=== PATIENT | male | born 1950 | race Caucasian/White ===

== ENCOUNTER 2018-08-19 13:18 | Emergency (ER) | payer BC ==
[2018-08-19] MEDS ORDERED: APRESOLINE 20 MG/ML INJ IV ONE (13:44)
[2018-08-19] MEDS ORDERED: APRESOLINE 20 MG/ML INJ ONE (13:55)
[2018-08-19 14:00] LABS: BASOPHIL % 0.4 % (0.0-0.4); Basophil (Absolute #) 0.03 (0-0.4); Eosinophil % 1.8 % (0.00-5.0); Eosinophil (Absolute #) 0.14 (0-0.5); Granulocyte Absolute (ANC) 5.95 (1.4-6.9); Granulocytes % 74.7 % (36.0-66.0); Hematocrit 43.9 % (42-50); Hemoglobin 14.4 gm/dl (12.5-18.0); Lymphocyte (Absolute #) 1.22 (1.0-4.6); Lymphocytes % 15.3 % (24.0-44.0); Mean Cell Volume 85.7 fl (78-100); Mean Corpuscular Hemoglobin 28.1 pg (26-32); Mean Corpuscular Hgb Concent. 32.8 g/dl (32-36); Mean Platelet Volume 9.9 fl (6-9.5); Monocyte (Absolute #) 0.62 (0.0-1.3); Monocytes % 7.8 % (0.0-12.0); Platelet Count 163 K/mm3 (150-450); Red Blood Count 5.12 M/mm3 (4.1-5.6); Red Cell Distribution Width 14.8 % (11.5-14.0)
[2018-08-19 14:13] LABS: Appearance CLEAR (CLEAR); Bacteria RARE /HPF (NEGATIVE); Bilirubin NEGATIVE (NEGATIVE); Blood SMALL Ery/ul (0-5); Glucose 150 mg/dL (NEGATIVE); Ketones NEGATIVE (NEGATIVE); Leukocyte Esterase NEGATIVE (NEGATIVE); Nitrite NEGATIVE (NEGATIVE); Protein,Urine Dip 30 (Negative); Specific Gravity 1.012 (1.005-1.025); Urobilinogen NEGATIVE mg/dL (0-1)
[2018-08-19 14:19] LABS: ALBUMIN 4.1 g/dL (3.5-5.0); ALKALINE PHOSPHATASE 49 U/L (38-126); ANION GAP 14.9 MEQ/L (5-15); BLOOD UREA NITROGEN 17 mg/dL (9-20); CHLORIDE 101 mmol/L (98-107); Calcium 9.9 mg/dL (8.4-10.2); Carbon Dioxide 27 mmol/L (22-30); Creatinine 1 0.95 mg/dL (0.66-1.25); Glucose 195 mg/dL (74-106); NT PRO BNP 392 pg/mL (0-900); Potassium 4.3 mmol/L (3.5-5.1); SGOT/AST 33 U/L (17-59); SGPT/ALT 47 U/L (0-50); SODIUM 139 mmol/L (137-145); Total Protein 7.2 g/dL (6.3-8.2)
--- NOTE | 2018-08-19 15:12 | XRAY ---
Indication: Right upper quadrant pain. Multiple contiguous axial images obtained through the abdomen and pelvis without contrast as ordered. Comparison: None CT chest reported separately. Noncontrasted stomach and bowel loops appear nonobstructed. Normal appendix. Minimal scattered descending and sigmoid diverticulosis. Previous cholecystectomy. No free fluid/air. Hepatic/splenic calcified granulomas. Bilateral renal cysts, largest right upper pole measuring 3.4 cm. Also nonobstructing punctate right renal stone. Remaining liver, pancreas, spleen, adrenal glands, kidneys, ureters, and bladder appear unremarkable for noncontrast exam. Mild scattered vascular calcifications. No AAA. Osseous structures demonstrates normal degenerative changes throughout the spine. Moderate/advanced degenerative changes of the left hip. No ventral or inguinal hernias. Impression: 1. Minimal colonic diverticulosis, bilateral renal cysts, nonobstructing right renal microcalculus, and evidence for old granulomatous disease. 2. Moderate/advanced left hip degenerative arthropathy. 3. Remaining CT abdomen/pelvis without contrast exam is negative. CT DI 27.56
--- NOTE | 2018-08-19 15:13 | XRAY ---
Indication: Left chest pain. Hypertension. Multiple contiguous axial images obtained through the chest without contrast as ordered. Comparison: None Lungs inflated with minimal bibasilar dependent atelectasis and minimal left base scarring. No suspicious pulmonary mass, infiltrate, or effusion. Heart is not enlarged. Aorta mildly arteriosclerotic without aneurysmal dilatation. Tiny left hilar calcified nodes. No pathologic mediastinal lymphadenopathy. Bony thorax intact with flowing osteophytes throughout the spine. CT abdomen reported separately. Impression: Minimal atelectasis/scarring. Remaining CT chest without contrast exam is negative. CT DI 19.30
--- NOTE | 2018-08-19 15:51 | ERPHSYRPT ---
- History of Present Illness Source: patient Exam Limitations: no limitations Patient Subjective Stated Complaint: pt reports he was at a routine neurology appt this morning when his blood pressure reading was high at 186/92. his neurologist advised him to see his PCP today. pt called his PCP who was sick and referred to another provider who advised him to come to the ED. pt complains of right upper back pain for one week. pt advised he has not taken his daily water pills today due to his travel to [place] this morning. Triage Nursing Assessment: pt is aox3, pt appears in no distress, pupils perrl, afebrile, radial pulses strong and equal, cap refill < 3 seconds, pt abd non tender, bowel sounds present and normoactive x 4, pt has 1 + pitting edema to bilat lower extremities. pt skin pink warm dry. Physician History: Pt was at his neurologist appoint, and when they took his vitals, he was extremly hypertensive, with SBP in the 220s. The pt was refered to the ER. Pt denies F/C/S. No problem with urination. No chest pain or palpitations. No headache. Pt is complaining of pain in his R mid back. that is worse with pressure or palpations. Timing/Duration: today Activities at Onset: none Severity of Pain-Max: none Severity of Pain-Current: none Aspirin Treatment Today: unknown Allergies/Adverse Reactions: No Known Drug Allergies Allergy (Verified 05/16/15 06:30) Home Medications: Benazepril HCl [Lotensin] 40 mg PO DAILY 02/15/14 [History] Glyburide Micronized 3 mg [Glynase 3 MG] 3 mg PO BID 02/15/14 [History] HydrALAzine HCL 25 MG TAB [Apresoline 25 MG TABLET] 100 mg PO TID [History] Metolazone 2.5 mg [Zaroxolyn 2.5 MG] 2.5 mg PO UD 02/15/14 [History] Montelukast Sodium [Singulair] 10 mg PO HS 02/15/14 [History] Nifedipine [Procardia Xl] 30 mg PO DAILY 02/15/14 [History] Potassium Chloride 20 Meq [Klor-Con 20 MEQ] 100 meq PO DAILY 02/15/14 [History] Spironolactone [Aldactone] 50 mg PO DAILY 02/15/14 [History] Aspirin [Aspirin EC] 81 mg PO DAILY 03/14/14 [History] Nitroglycerin 0.4 mg (Ed) [Nitrostat 0.4 MG (ED)] 1 tab SL UD PRN [History] Furosemide [Lasix] 80 mg PO QPM 03/15/14 [History] Subcutaneous Insulin Pump [Insulin Pump] 1 each MC DAILY 03/15/14 [History] Clopidogrel Bisulfate 75 mg [PLAVIX 75 MG Tablet] 75 mg PO DAILY 08/19/18 [History] Dulaglutide [Trulicity] 1 each SQ WEEKLY 08/19/18 [History] Ergocalciferol (Vitamin D2) [Vitamin D2] 50,000 units PO UD 08/19/18 [History] Ezetimibe 10 mg [Zetia 10 MG] 10 mg PO DAILY 08/19/18 [History] Labetalol HCl 100 mg [Trandate 100 MG] 300 mg PO BID 08/19/18 [History] Liraglutide [Victoza 2-Fabrice] 1 each SQ DAILY 08/19/18 [History] Primidone 50 mg PO TID 08/19/18 [History] Rosuvastatin Calcium [Crestor] 40 mg PO DAILY 08/19/18 [History] Testosterone 30 mg TD UD 08/19/18 [History] Hx Tetanus, Diphtheria Vaccination/Date Given: Yes Hx Influenza Vaccination/Date Given: Yes Hx Pneumococcal Vaccination/Date Given: Yes Immunizations Up to Date: Yes - Review of Systems Constitutional: No Fever, No Chills Eyes: No Symptoms Ears, Nose, & Throat: No Symptoms Respiratory: No Cough, No Dyspnea Cardiac: No Chest Pain, No Edema, No Syncope Abdominal/Gastrointestinal: No Abdominal Pain, No Nausea, No Vomiting, No Diarrhea Genitourinary Symptoms: No Dysuria Musculoskeletal: Back Pain (mid basck on the right), No Neck Pain Neurological: No Dizziness, No Focal Weakness, No Sensory Changes - Past Medical History Pertinent Past Medical History: Yes Neurological History: Seizures ENT History: No Pertinent History Cardiac History: Coronary Artery Disease, High Cholesterol, Hypertension Respiratory History: Asthma Endocrine Medical History: Diabetes Type II Musculoskeletal History: No Pertinent History GI Medical History: Colorectal Cancer, Esophageal Disorder, Other History: No Pertinent History Psycho-Social History: No Pertinent History Male Reproductive Disorders: No Pertinent History Other Medical History: SZ-8yrs ago,esoph spasm. anemia - Past Surgical History Past Surgical History: Yes Neuro Surgical History: No Pertinent History Cardiac: Cardiac Catheterization, Cardiac Stent Respiratory: No Pertinent History Gastrointestinal: Cholecystectomy Genitourinary: No Pertinent History Musculoskeletal: Orthopedic Surgery Male Surgical History: No Pertinent History Other Surgical History: at age [age] left upper leg crushed, colonoscopy, EGD. october 2017 cardiac stent - Social History Smoking Status: Never smoker Exposure to second hand smoke: Yes Drug Use: none Patient Lives Alone: No - Nursing Vital Signs Nursing Vital Signs: Initial Vital Signs Temperature 98.4 F 08/19/18 13:24 Pulse Rate 104 H 08/19/18 13:24 Respiratory Rate 20 08/19/18 13:24 Blood Pressure 220/121 08/19/18 13:24 O2 Sat by Pulse Oximetry 97 08/19/18 13:24 Pain Scale Pain Intensity 8 - Physical Exam General Appearance: no apparent distress, alert Eye Exam: PERRL/EOMI, eyes nml inspection Ears, Nose, Throat Exam: normal ENT inspection, moist mucous membranes Neck Exam: normal inspection, non-tender, supple Respiratory Exam: normal breath sounds, lungs clear, No respiratory distress Cardiovascular Exam: regular rate/rhythm, normal heart sounds, No edema Gastrointestinal/Abdomen Exam: soft, No tenderness, No mass Back Exam: normal inspection, muscle spasm, other (midthoracic back on the R), No CVA tenderness, No vertebral tenderness Extremity Exam: normal inspection, normal range of motion Neurologic Exam: alert, oriented x 3, cooperative, normal mood/affect, nml cerebellar function, sensation nml, No motor deficits Skin Exam: normal color, warm, dry Lymphatic Exam: No adenopathy SpO2: 95 - Course Nursing assessment & vital signs reviewed: Yes EKG Interpreted by Me: RATE (78bpm, ), NORMAL AXIS, NORMAL QRS, NORMAL ST-T - CT Exams Abdomen/Pelvis CT Interpretation: Negative (minimal diverticulosis, b/l renal cysts, moderate advanced left hip degenerative arthropathy.) Chest CT Interpretation: Negative (minimal atelectasis/scarring) Ordered Tests: Active Orders 24 hr Category Date Time Status EKG-ER Only STAT Care 08/19/18 13:00 Active IV Insertion STAT Care 08/19/18 13:54 Active ABDOMEN AND PELVIS W/0 CONTRAS [CT] Stat Exams 08/19/18 14:38 Completed CHEST WITHOUT CONTRAST [CT] Stat Exams 08/19/18 14:37 Completed CBC W DIFF Stat Lab 08/19/18 13:45 Completed CMP Stat Lab 08/19/18 13:45 Completed CULTURE,URINE Stat Lab 08/19/18 14:01 Received NT PRO BNP Stat Lab 08/19/18 13:45 Completed TROPONIN Q3H Lab 08/19/18 13:45 Completed TROPONIN Q3H Lab 08/19/18 17:00 Ordered TROPONIN Q3H Lab 08/19/18 20:00 Ordered TROPONIN Q3H Lab 08/19/18 23:00 Ordered TROPONIN Q3H Lab 08/20/18 02:00 Ordered UA W/RFX UR CULTURE Stat Lab 08/19/18 14:01 Completed Medication Summary Generic Name Dose Route Start Last Admin Trade Name Freq PRN Reason Stop Dose Admin Hydralazine HCl 25 mg 08/19/18 17:00 08/19/18 15:07 Apresoline 25 Mg Tablet PO 09/18/18 16:59 25 mg QID ANDRY Administration Discontinued Medications Generic Name Dose Route Start Last Admin Trade Name Freq PRN Reason Stop Dose Admin Hydralazine HCl 20 mg 08/19/18 13:44 08/19/18 14:00 Apresoline 20 Mg/Ml Inj IV 08/19/18 13:45 20 mg STAT ONE Administration Hydralazine HCl Confirm 08/19/18 13:55 Apresoline 20 Mg/Ml Inj Administered 08/19/18 13:56 Dose 20 mg .ROUTE .xAd-[facility] ONE Lab/Rad Data: Laboratory Result Diagrams 08/19/18 13:45 08/19/18 13:45 Laboratory Results 08/19/18 08/19/18 08/19/18 Range/Units 14:01 13:45 13:45 WBC (4.0-10.5) K/mm3 RBC (4.1-5.6) M/mm3 Hgb (12.5-18.0) gm/dl Hct (42-50) % MCV (78-100) fl MCH (26-32) pg MCHC (32-36) g/dl RDW (11.5-14.0) % Plt Count (150-450) K/mm3 MPV (6-9.5) fl Gran % (36.0-66.0) % Eos # (Auto) (0-0.5) Absolute Lymphs (auto) (1.0-4.6) Absolute Monos (auto) (0.0-1.3) Lymphocytes % (24.0-44.0) % Monocytes % (0.0-12.0) % Eosinophils % (0.00-5.0) % Basophils % (0.0-0.4) % Absolute Granulocytes (1.4-6.9) Basophils # (0-0.4) Sodium 139 (137-145) mmol/L Potassium 4.3 (3.5-5.1) mmol/L Chloride 101 (98-107) mmol/L Carbon Dioxide 27 (22-30) mmol/L Anion Gap 14.9 (5-15) MEQ/L BUN 17 (9-20) mg/dL Creatinine 0.95 (0.66-1.25) mg/dL Estimated GFR > 60.0 ML/MIN Glucose 195 H (74-106) mg/dL Calcium 9.9 (8.4-10.2) mg/dL Total Bilirubin 1.00 (0.2-1.3) mg/dL AST 33 (17-59) U/L ALT 47 (0-50) U/L Alkaline Phosphatase 49 (38-126) U/L Troponin I < 0.012 (0.000-0.034) ng/mL NT-Pro-B Natriuret Pep 392 (0-900) pg/mL Serum Total Protein 7.2 (6.3-8.2) g/dL Albumin 4.1 (3.5-5.0) g/dL Urine Color YELLOW (YELLOW) Urine Appearance CLEAR (CLEAR) Urine pH 7.0 (5-6) Ur Specific Morrow 1.012 (1.005-1.025) Urine Protein 30 (Negative) Urine Ketones NEGATIVE (NEGATIVE) Urine Blood SMALL (0-5) Abiel/ul Urine Nitrite NEGATIVE (NEGATIVE) Urine Bilirubin NEGATIVE (NEGATIVE) Urine Urobilinogen NEGATIVE (0-1) mg/dL Ur Leukocyte Esterase NEGATIVE (NEGATIVE) Urine WBC (Auto) NONE (0-5) /HPF Urine RBC (Auto) 3-5 (0-2) /HPF U Epithel Cells (Auto) NONE (FEW) /HPF Urine Bacteria (Auto) RARE (NEGATIVE) /HPF Urine Culture Reflexed YES (NO) Urine Glucose 150 (NEGATIVE) mg/dL 08/19/18 Range/Units 13:45 WBC 8.0 (4.0-10.5) K/mm3 RBC 5.12 (4.1-5.6) M/mm3 Hgb 14.4 (12.5-18.0) gm/dl Hct 43.9 (42-50) % MCV 85.7 (78-100) fl MCH 28.1 (26-32) pg MCHC 32.8 (32-36) g/dl RDW 14.8 H (11.5-14.0) % Plt Count 163 (150-450) K/mm3 MPV 9.9 H (6-9.5) fl Gran % 74.7 H (36.0-66.0) % Eos # (Auto) 0.14 (0-0.5) Absolute Lymphs (auto) 1.22 (1.0-4.6) Absolute Monos (auto) 0.62 (0.0-1.3) Lymphocytes % 15.3 L (24.0-44.0) % Monocytes % 7.8 (0.0-12.0) % Eosinophils % 1.8 (0.00-5.0) % Basophils % 0.4 (0.0-0.4) % Absolute Granulocytes 5.95 (1.4-6.9) Basophils # 0.03 (0-0.4) Sodium (137-145) mmol/L Potassium (3.5-5.1) mmol/L Chloride (98-107) mmol/L Carbon Dioxide (22-30) mmol/L Anion Gap (5-15) MEQ/L BUN (9-20) mg/dL Creatinine (0.66-1.25) mg/dL Estimated GFR ML/MIN Glucose (74-106) mg/dL Calcium (8.4-10.2) mg/dL Total Bilirubin (0.2-1.3) mg/dL AST (17-59) U/L ALT (0-50) U/L Alkaline Phosphatase (38-126) U/L Troponin I (0.000-0.034) ng/mL NT-Pro-B Natriuret Pep (0-900) pg/mL Serum Total Protein (6.3-8.2) g/dL Albumin (3.5-5.0) g/dL Urine Color (YELLOW) Urine Appearance (CLEAR) Urine pH (5-6) Ur Specific Morrow (1.005-1.025) Urine Protein (Negative) Urine Ketones (NEGATIVE) Urine Blood (0-5) Abiel/ul Urine Nitrite (NEGATIVE) Urine Bilirubin (NEGATIVE) Urine Urobilinogen (0-1) mg/dL Ur Leukocyte Esterase (NEGATIVE) Urine WBC (Auto) (0-5) /HPF Urine RBC (Auto) (0-2) /HPF U Epithel Cells (Auto) (FEW) /HPF Urine Bacteria (Auto) (NEGATIVE) /HPF Urine Culture Reflexed (NO) Urine Glucose (NEGATIVE) mg/dL - Progress Progress: improved Air Movement: good Progress Note: 08/19/18 15:54 Pt had lab work that were normal, including troponins. He got Hydralazine 20mg IV and 25mg PO. CTs of chest, abdomen and pelvis, did not show any pathology that will explain the pain. Pt has probably muscular pain. Pt is safe for d/ c. He should take his meds as ordered, especially the Hydralazine 100mg TID. Pt should f/u with his claim manager for BP f/u. Blood Culture(s) Obtained: No Antibiotics given: No Discussed with Dr.: Sharon Will see patient in: office Counseled pt/family regarding: need for follow-up - Departure Departure Disposition: Home Clinical Impression: Hypertensive urgency Condition: Stable Critical Care Time: No Referrals: MIGUEL ANGEL TAPIA [Primary Care Provider] - Additional Instructions: Take meds as ordered. F/U with PCP this week, and with cardiology for meds adjustments.
[2018-08-19 16:04] VITALS: BP 159/85; PULSE 96; O2SAT 96
[2018-08-19] MEDS ORDERED: Apresoline 25 MG TABLET PO SCH (17:00)
== END 2018-08-19 16:04 | disposition home or self-care (01) ==
LOC: ED 13:18
DX: I16.0 Hypertensive urgency (principal); I25.10 Atherosclerotic heart disease of native coronary artery without angina pectoris; E78.00 Pure hypercholesterolemia, unspecified; J45.909 Unspecified asthma, uncomplicated
CPT/HCPCS: 36000; 36415; 71250; 74176; 80053; 81001; 83880; 84484; 85025; 87086; 93005; 96374; 99284; J0360; A9270-GY

== ENCOUNTER 2019-10-19 05:53 | Day surgery (SDC) | payer BC, MEDICARE ==
[2019-10-19] MEDS ORDERED: Lactated Ringers 1,000 ML IV SCH (06:30)
[2019-10-19] MEDS ORDERED: DIPRIVAN 200 MG/20 ML IV ONE (08:22)
[2019-10-19 09:54] VITALS: O2SAT 95
--- NOTE | 2019-10-19 10:22 | OP ---
SURGERY DATE/TIME: 10/19/2019 0826 PREOPERATIVE DIAGNOSIS: Rectal bleeding. POSTOPERATIVE DIAGNOSIS: Ulcerative colitis and pseudopolyps. PROCEDURE: Colonoscopy with cold forceps biopsy. SURGEON: Dr. Herrera. ANESTHESIA: Medications were given by the anesthesia department. HISTORY: The patient is a 69 year old white male patient with history of colitis. The patient reports he recently had rectal bleeding. He also reports a few days back he had partial colon resection. The patient is felt the need to have endoscopic evaluation. He was appraised of the risks of the procedure including the risk of perforation, phlebitis, untoward reaction to medication, bleeding and missed lesions. The patient verbalized his understanding and desired to have the procedure performed. DESCRIPTION OF PROCEDURE: The patient was given the medications by the anesthesia department. He had continuous pulse oximetry, ECG monitoring, intermittent blood pressure monitoring and tidal CO2 monitoring during the examination. He was placed in the left lateral decubitus position. A digital rectal examination was performed and revealed normal anal sphincter tone, no masses and normal prostate. The flexible Olympus pediatric colonoscope was used to intubate the rectum. A view of the colon was developed sequentially to the cecum. Upon insertion and withdrawal was noted what appeared to be ulcerative colitis upwards approximately 15 to 20 cm from direct insertion from the anus. There was also noted to be multiple what appeared to be pseudopolyps these were biopsied to rule out any adenomatous change or dysplasia. The scope was removed from the patient who tolerated the procedure well and was sent back to OP recovery in good condition. The prep was noted to be fair.
[2019-10-19 10:23] VITALS: BP 128/72; PULSE 72
== END 2019-10-19 10:00 | disposition home or self-care (01) ==
LOC: SDC 05:53
PROVIDERS: ATTEND Family Medicine
DX: K51.90 Ulcerative colitis, unspecified, without complications (principal); K63.5 Polyp of colon; K52.9 Noninfective gastroenteritis and colitis, unspecified; Z90.49 Acquired absence of other specified parts of digestive tract; E11.9 Type 2 diabetes mellitus without complications
CPT/HCPCS: 82962; 88305; 93005; J2704

== ENCOUNTER 2022-04-27 05:50 | Day surgery (SDC) | payer BC, OTHER ==
[2022-04-27] MEDS ORDERED: Lactated Ringers 1,000 ML IV ONE (06:34)
[2022-04-27] MEDS ORDERED: DIPRIVAN 200 MG/20 ML IV ONE ×2 (06:51→07:26)
[2022-04-27] MEDS ORDERED: Xylocaine-Mpf 2% 5 Ml Vial ONE (06:52)
[2022-04-27] MEDS ORDERED: Lactated Ringers 1,000 ML IV SCH (07:30)
[2022-04-27 08:05] VITALS: O2SAT 95
[2022-04-27 08:31] VITALS: BP 137/66; PULSE 77
--- NOTE | 2022-04-27 08:49 | OP ---
SURGERY DATE/TIME: 04/27/2022 0708 PREOPERATIVE DIAGNOSIS: Lung mass, previous history of possible cancer. POSTOPERATIVE DIAGNOSES: 1) Gastritis. 2) Hiatal hernia. 3) Pseudopolyps of the colon. PROCEDURES: 1) Esophagogastroduodenoscopy. 2) Colonoscopy with cold forceps biopsy. SURGEON: Dr. Herrera. ANESTHESIA: Medications were given by the anesthesia department. HISTORY: The patient is a 72-year-old white male patient presents now for endoscopic evaluation. His doctors have done evaluations including PET scan of lung. There was a concern for possibility of malignancy in the lung but there was also concern previously because he may have had cancer of the GI tract and the oncologist recommendation that he had was for GI evaluation. The patient was appraised of the risks of the procedure including the risk of perforation, phlebitis, untoward reaction to medication, bleeding and missed lesions. The patient verbalized his understanding and desired to have the procedure performed. DESCRIPTION OF PROCEDURE: The patient was given the medications by the anesthesia department. He had continuous pulse oximetry, ECG monitoring and intermittent blood pressure monitoring during the examination. He was placed in the left lateral decubitus position. A bite block was placed and the flexible Olympus gastroscope was used to intubate the oropharynx. A view of the larynx was obtained and was normal. The scope was easily introduced in the esophagus which appeared to be essentially normal throughout its length. The stomach was entered where normal gastric rugal folds were seen. There was noted to be some moderate inflammation in the body and antrum of the stomach. The scope was passed down the greater curvature of the stomach to the antrum and pylorus is encountered. There appeared to be some food stuff in the first portion of the duodenum that we were unable to flush clear. However, I was able to get beyond this to see the second and third portion of the duodenum. Upon withdrawal again the same look at that area the food stuff had gotten removed from that area. The scope is withdrawn towards the stomach. A retroflex view was obtained of the lesser curvature, fundus and cardia regions of the stomach and these appeared to be essentially normal. The scope was then removed from the patient. Next, a digital rectal examination was performed and revealed normal anal sphincter tone and no masses and normal prostate. The flexible Olympus pediatric colonoscope was used to intubate the rectum. A view of the colon was developed sequentially to the cecum. Upon insertion and withdrawal, there was noted an area in the transverse colon that there appeared to be pseudopolyps that were tiny. These were biopsied using cold forceps biopsy to determine that there was no underlying malignancy. The scope was removed from the patient who tolerated the procedure well and was sent back to OP recovery in good condition. The prep was noted to be fair to good.
== END 2022-04-27 08:35 | disposition home or self-care (01) ==
LOC: SDC 05:50 → EDSTATUS 11:29
PROVIDERS: ATTEND Family Medicine
DX: K63.5 Polyp of colon (principal); K29.70 Gastritis, unspecified, without bleeding; R91.8 Other nonspecific abnormal finding of lung field; K44.9 Diaphragmatic hernia without obstruction or gangrene
CPT/HCPCS: 82947; 99100; J2704